=== PATIENT | male | born 1960 | race Caucasian/White ===

== ENCOUNTER 2023-08-04 11:06 | Outpatient (CLI) | payer OTHER, SELFPAY ==
[2023-08-04 11:24] LABS: Basophils Absolute Auto 0.1 K/mm3 (0.0-0.1); Basophils Percent Auto 0.9 % (0.2-1.2); Eosinophils Absolute Auto 0.2 K/mm3 (0-0.3); Eosinophils Percent Auto 3.7 % (0-4.4); Hematocrit 35.8 % (42.0-52.0); Hemoglobin 12.2 g/dL (14.0-18.0); Immature Granulocyte Absolute 0.03 K/mm3 (0.00-0.031); Immature Granulocyte Percent A 0.5 % (0-0.5); Lymphocytes Absolute Auto 0.55 K/mm3 (0.9-3.2); Lymphocytes Percent Auto 8.4 % (18.3-44.2); Mean Corpuscular HGB Conc 34.1 g/dl (32-36); Mean Corpuscular Hemoglobin 32.8 pg (26-34); Mean Corpuscular Volume 96.2 fl (80-100); Mean Platelet Volume 8.2 fl (7.4-10.4); Monocytes Absolute Auto 0.6 K/mm3 (0.1-0.6); Monocytes Percent Auto 8.7 % (2.6-8.5); Neutrophils Absolute Auto 5.1 K/mm3 (1.3-6.7); Neutrophils Percent Auto 77.8 % (45.5-73.1); Platelet Count Result 380 k/mm3 (150-375); Red Blood Count 3.72 M/mm3 (4.6-6.20); Red Cell Distribution Width 12.8 % (11.5-14.5); White Blood Count 6.6 K/mm3 (4.5-10.0)
[2023-08-04 16:35] LABS: Alanine Aminotransferase 8 U/L (6-50); Albumin Level 4.4 g/dL (3.5-5.1); Alkaline Phosphatase 97 U/L (38-126); Anion Gap 9 mmol/L (8-16); Aspartate Amino Transferase 16 U/L (17-59); Bilirubin,Total 0.4 mg/dL (0.2-1.3); Blood Urea Nitrogen 22 mg/dL (9-20); Calcium 9.7 mg/dL (8.4-10.2); Carbon Dioxide 27 mmol/L (22-30); Chloride 96 mmol/L (98-107); Estimated Glomerular Filt Rate > 60; Glucose 81 mg/dL (65-110); Potassium 4.1 mmol/L (3.4-5.0); Sodium 132 mmol/L (137-145)
== END 2023-08-04 11:07 | disposition home or self-care (01) ==
LOC: ANHLAB 11:08
PROVIDERS: Visit Provider Internal Medicine Hematology & Oncology
DX: C02.9 Malignant neoplasm of tongue, unspecified (principal)
CPT/HCPCS: 36415; 80053; 85025

== ENCOUNTER 2023-08-12 07:37 | Outpatient (CLI) | payer OTHER, SELFPAY ==
--- NOTE | ~2023-08-12 | PE_ITS ---
EXAMINATION: PET skull to mid thigh DATE: 08/12/2023 09:59 INDICATION: Tongue cancer TECHNIQUE: Blood glucose level was 74 mg/dL. 8.167 mCi of 18-fluorodeoxyglucose (18-FDG) was administ ered i.v. Low dose computed tomography (CT) images were acquired from the base of the brain to the pr oximal thighs for attenuation correction and anatomic localization. Positron emission tomography (PET ) images were acquired in the same distribution beginning 57 minutes after injection. Images includin g fused PET/CT images were reconstructed in axial, coronal, and sagittal planes. Automated exposure c ontrol technique was employed. The dose-length product was 545.11mGy-cm. COMPARISON: None FINDINGS: Head/neck: There is symmetric increased activity in the oral cavity, soft palate, parotid glands, laryngeal mu scles, longus capitis muscles and ocular muscles without CT correlate, likely physiologic. There is p rominent uptake along the caudal aspect of the tongue and extending along the floor of the vallecula with maximal SUV of 16.2. No pathologically enlarged cervical lymphadenopathy. There is however a sma ll focus of moderate increased uptake with maximal SUV of 9.9 positioned along the right internal jug ular chain at the level of the glottis. There is a second small focus of increased uptake with sanjuana l SUV of 8.0 in the region of a few small calcified left level 2 jugular chain lymph nodes. Both are suspicious for metastatic disease. Chest: Severe emphysema at the right apex and prominent bullous change along the anteromedial left upper lob e. Mild uptake with maximal SUV of 1.7 associated with a 6 mm nodule along a linear band of discoid a telectasis at the right apex. Additional mild uptake with maximal SUV of 2.0 associated with an appro ximately 1 cm focus of groundglass opacity in the right middle lobe. Air-fluid level within a 1.9 x 1 .0 cm cavitary lesion at the posterior basilar left lower lobe which is without evident FDG uptake. T here is mild uptake with maximal SUV of 2.9 associated with a small region of atelectasis along the a djacent posterior medial pleura and with maximal SUV of 2.1 associated with a small linear band of di scoid atelectasis at the anterobasilar right lower lobe. Finally there is negligible activity such wi th less dense atelectasis in the dependent right lower lobe. Heart size normal. No pericardial or ple ural effusion. Normal caliber thoracic aorta. Calcified nodules in the left lung along with calcified left hilar and mediastinal lymph nodes consistent with old granulomatous disease. No pathologically enlarged or abnormally FDG avid thoracic lymphadenopathy. Mild likely physiologic muscular uptake wit hout radiologic correlate at the bilateral deltoid muscles and bilaterally at the posterior chest wal l musculature. Abdomen/pelvis/proximal thighs: Physiologic renal accumulation and excretion of FDG activity in the kidneys, bladder and along portio ns of ureters. Normal degree and heterogenous pattern of increased uptake throughout the liver withou t radiologic correlate or dominant FDG avid lesion. The gallbladder, pancreas and bilateral adrenal g lands are normal. Multiple splenic calcifications consistent with old granulomatous disease. Mild upt adarsh scattered throughout the bowels without radiologic correlate, also likely physiologic. No other a bnormal foci of increased FDG uptake or pathologically enlarged lymphadenopathy in the abdomen, pelvi s or proximal thighs. Musculoskeletal: No suspicious lytic, blastic or abnormally FDG avid bone lesions. There is additional mild likely phy siologic uptake without radiologic correlate throughout the musculature of the left upper arm and [place] ateral and sent forearms. Linear likely lymphatic uptake extending cephalad lung the medial left uppe r arm from the site of injection at the left antecubital fossa. IMPRESSION: 1. Prominent increased uptake in the
[2023-08-12 08:09] LABS: Glucose Point of Care 74 mg/dl (65-105)
== END 2023-08-12 07:38 | disposition home or self-care (01) ==
PROVIDERS: PCP Family Medicine; Visit Provider Internal Medicine Hematology & Oncology
DX: C02.9 Malignant neoplasm of tongue, unspecified (principal)
CPT/HCPCS: 78815; A9552

== ENCOUNTER 2023-10-22 14:32 | Outpatient (CLI) | payer MEDICAID, SELFPAY ==
--- NOTE | ~2023-10-22 | CT_ITS ---
EXAMINATION: CT brain wo/w con DATE: 10/22/2023 15:03 INDICATION: Chronic headache TECHNIQUE: Computed tomography (CT) of the head was performed without and with 100 mL Omnipaque-350 i ntravenous contrast. Sagittal and coronal reconstructions were performed. The mA was adjusted accordi ng to patient size. Iterative reconstruction technique was employed. The dose-length product was 1362 .00 mGy-cm. COMPARISON: None FINDINGS: No acute intracranial hemorrhage, acute infarction or abnormal extra axial fluid collection. Ventricl es are normal and symmetric. No mass/mass effect. No abnormally enhancing brain lesions identified. L eft vertebral artery is dominant. Small amount of nonhemodynamically significant atherosclerotic calc ific a bernabe at the bilateral carotid siphons. Bilateral A1 and P1 segments are patent. The right A1 s egment is diminutive with the majority of supply to the right anterior cerebral artery supplied via a larger caliber patent anterior communicating artery. The orbits, paranasal sinuses and mastoid air c ells are normal. IMPRESSION: 1. Normal aging brain. No acute intracranial process or abnormally enhancing brain lesions. Reviewed, dictated and finalized at location A. IMPRESSION: 1. Normal aging brain. No acute intracranial process or abnormally enhancing br ain lesions.
[2023-10-22 14:58] LABS: Estimated Glomerular Filt Rate > 60
== END 2023-10-22 14:33 | disposition home or self-care (01) ==
LOC: ANHIMG 14:33
PROVIDERS: PCP Family Medicine; Visit Provider Internal Medicine Hematology & Oncology
DX: R51.9 Headache, unspecified (principal)
CPT/HCPCS: 70470; Q9967

== ENCOUNTER 2023-11-03 13:53 | Outpatient (CLI) | payer MEDICAID, SELFPAY ==
--- NOTE | ~2023-11-03 | CT_ITS ---
EXAMINATION: CT soft tissue neck w con DATE: 11/03/2023 14:56 INDICATION: Tongue cancer. TECHNIQUE: Computed tomography (CT) of the neck was performed with 75 mL Omnipaque-350 intravenous co ntrast. Automated exposure control and iterative reconstruction technique were employed. The dose-gabbie gth product was 212.11 mGy-cm. COMPARISON: PET/CT 08/12/2023 FINDINGS: There is a necrotic mass involving the tongue, base of tongue, and floor of mouth. The mass measures approximately 5.3 x 3.6 cm on transaxial images. A right mid internal jugular chain node me asures 13 x 12 mm. Emphysema is noted. There is mild scarring at the lung apices. There is severe cer vical spondylosis. There is a chronic compression fracture of T1. There is mild mucosal thickening in the paranasal sinuses. There is a trace right mastoid effusion. IMPRESSION: 1. Necrotic mass involving the tongue, base of tongue, and floor of mouth, consistent with primary ma lignancy, stable from 08/12/2023. 2. Mildly enlarged right internal jugular chain lymph node, consistent with metastatic disease, stabl e from 08/12/2023. Reviewed, dictated and finalized at location A. IMPRESSION: 1. Necrotic mass involving the tongue, base of tongue, and floor of mouth, cons istent with primary malignancy, stable from 08/12/2023. 2. Mildly enlarged right internal jugular chain lymph node, consistent with met astatic disease, stable from 08/12/2023.
== END 2023-11-03 13:54 | disposition home or self-care (01) ==
PROVIDERS: PCP Family Medicine; Visit Provider Internal Medicine Hematology & Oncology
DX: C02.9 Malignant neoplasm of tongue, unspecified (principal)
CPT/HCPCS: 70491; Q9967